=== PATIENT | male | born 1960 | race Hispanic/Latino ===

== ENCOUNTER 2019-01-08 23:10 | Emergency (ER) | payer OTHER ==
[2019-01-08 23:23] VITALS: BP 152/86; PULSE 86; RESP 22; TEMP 98.6; O2SAT 95
[2019-01-08] MEDS ORDERED: Albuterol-Ipratrop 3 mg / 0.5 (3 ml) UD INH STA (23:24)
[2019-01-08] MEDS ORDERED: Albuterol-Ipratrop 3 mg / 0.5 (3 ml) UD ONE (23:30)
--- NOTE | 2019-01-09 00:17 | C.PDOC ---
History Of Present Illness 58-year-old male, whose past medical history includes former opiate abuse (on Suboxone) and hypertension, presents to the ED for evaluation of right-sided chest pain which began a few days ago. Patient states his symptoms worse with coughing. pt states "he may have lfited heavy paint" which caused the symptoms. He denies fever, chills, nausea, vomiting, extremity numbness/weakness. Time Seen by Provider: 01/08/19 23:38 Chief Complaint (Nursing): Chest Pain History Per: Patient History/Exam Limitations: no limitations Onset/Duration Of Symptoms: Hrs Current Symptoms Are (Timing): Still Present Quality: "Pain" Additional History Per: Patient Past Medical History Reviewed: Historical Data, Nursing Documentation, Vital Signs Vital Signs: Last Vital Signs Temp 98.6 F 01/08/19 23:17 Pulse 86 01/08/19 23:17 Resp 22 01/08/19 23:17 BP 152/86 H 01/08/19 23:17 Pulse Ox 95 01/08/19 23:17 - Medical History PMH: Back Problems, HTN, Hypercholesterolemia Surgical History: No Surg Hx Family History: States: Unknown Family Hx - Social History Hx Tobacco Use: No Hx Alcohol Use: No Hx Substance Use: No - Immunization History Hx Tetanus Toxoid Vaccination: No Hx Influenza Vaccination: No Hx Pneumococcal Vaccination: No Review Of Systems Cardiovascular: Positive for: Chest Pain (right-sided ) Gastrointestinal: Negative for: Nausea, Vomiting Neurological: Negative for: Weakness, Numbness Physical Exam - Physical Exam Appears: Non-toxic, No Acute Distress Skin: Normal Color, Warm, Dry Head: Atraumatic, Normacephalic Eye(s): bilateral: Normal Inspection Oral Mucosa: Moist Neck: Supple Chest: Symmetrical, No Deformity, Tenderness (right-sided chest wall ) Cardiovascular: Rhythm Regular, No Murmur Respiratory: Normal Breath Sounds, No Rales, No Rhonchi, No Wheezing Extremity: Normal ROM, Capillary Refill (less than 2 seconds ) Neurological/Psych: Oriented x3, Normal Speech, Normal Cognition ED Course And Treatment ECG: Interpreted By Me, Viewed By Me ECG Rhythm: Sinus Rhythm Interpretation Of ECG: Normal Sinus Rhythm at rate 71bpm. No ST/T wave changes. Rate From EC O2 Sat by Pulse Oximetry: 95 (on RA) Pulse Ox Interpretation: Normal Medical Decision Making Medical Decision Making: right sided point tenderness. pt exam has very specific point tenderness. no known fall. non clincal concern for rib fracture. cxr no pulmonary disease. Progress: CXR ordered and reviewed. Albuterol INH and Toradol IM given on reassess pain improving. very specific point tenderness to rigth chest wall . no abd ttp no ruq ttp.ekg no changes. non clinical concern for acs as exam very conssitent with msk pain. . Disposition - Disposition Referrals: [facility] [Outside] [facility] [Outside] Disposition: HOME/ ROUTINE Disposition Time: 12:00 Condition: STABLE Prescriptions: Naproxen [Naprosyn] 500 mg PO BID PRN #14 tablet PRN Reason: Pain, Mild (1-3) Instructions: Costochondritis, Chest Pain Forms: [facility] (Irish), Work Excuse - Clinical Impression Clinical Impression: Chest pain - Scribe Statement The provider has reviewed the documentation as recorded by the Scribe (Daphne Johnson) Provider Attestation: All medical record entries made by the Scribe were at my direction and personally dictated by me. I have reviewed the chart and agree that the record accurately reflects my personal performance of the history, physical exam, medical decision making, and the department course for this patient. I have also personally directed, reviewed, and agree with the discharge instructions and disposition.
--- NOTE | 2019-01-09 08:41 | RAD ---
Date of service: 01/09/2019 HISTORY: rigth sided cp COMPARISON: No prior. TECHNIQUE: Chest PA and lateral views FINDINGS: LUNGS: Consolidation PLEURA: No significant pleural effusion identified. No pneumothorax apparent. CARDIOVASCULAR: There is presence of aortic atherosclerotic calcification on x-ray. Mild cardiomegaly mild pulmonary venous congestion suspect. OSSEOUS STRUCTURES: Thoracic spondylosis. VISUALIZED UPPER ABDOMEN: Normal. OTHER FINDINGS: None. IMPRESSION: Mild pulmonary venous congestion suspect. Mild cardiomegaly. Correlate clinically.
--- NOTE | 2019-01-10 21:12 | CARD ---
APPROVED REPORT Date of service: 01/08/2019 EKG Measurement Heart [id number] <Conclusion> Sinus rhythm with occasional premature ventricular complexes Otherwise normal ECG
== END 2019-01-09 01:02 | disposition home or self-care (01) ==
LOC: C.ER 23:10
DX: R07.9 Chest pain, unspecified (principal)
CPT/HCPCS: 71046; 93005; 96372; 99283; J1885